=== PATIENT | female | born 1970 | race Caucasian/White ===

== ENCOUNTER → 2017-05-15 | Outpatient (CLI) | payer OTHER | LOC: CIMAGING 11:26 | PROVIDERS: ATTEND Urology | DX: N20.0 Calculus of kidney (principal); K59.00 Constipation, unspecified; Z96.0 Presence of urogenital implants | CPT/HCPCS: 74000-PO ==

== ENCOUNTER → 2017-05-29 | Outpatient (CLI) | payer OTHER | LOC: CIMAGING 10:28 | PROVIDERS: ATTEND Urology | DX: N20.0 Calculus of kidney (principal); Z96.0 Presence of urogenital implants | CPT/HCPCS: 74018-PO ==

== ENCOUNTER 2017-06-13 12:49 | Emergency (ER) | payer OTHER ==
[2017-06-13] MEDS ORDERED: ONDANSETRON 4 MG/2 ML VIAL ONE (13:17)
[2017-06-13] MEDS ORDERED: PROMETHAZINE HCL 25 MG/ML INJ ONE (13:18)
[2017-06-13] MEDS ORDERED: ONDANSETRON 4 MG/2 ML VIAL IVP ONE (13:20)
[2017-06-13] MEDS ORDERED: HYDROmorphONE/DILAUDID 1 MG/ML INJ ONE (13:30)
[2017-06-13] MEDS ORDERED: HYDROmorphONE/DILAUDID 1 MG/ML INJ IVP ONE (13:31)
[2017-06-13] MEDS ORDERED: PROMETHAZINE HCL 25 MG/ML INJ IVP ONE (13:32)
[2017-06-13] MEDS ORDERED: NS 1,000 ML IV ONE (14:31)
[2017-06-13 14:38] LABS: PLATELET COUNT 255 10^3/uL (150-400)
[2017-06-13] MEDS ORDERED: KETOROLAC 30 MG/1 ML SDV IVP ONE (15:03)
--- NOTE | 2017-06-13 15:08 | EDPHY ---
H & P Time Seen by Provider: 06/13/17 14:20 HPI/ROS: HPI Postoperative pain. 47-year-old female by private vehicle with friend. This patient reports that in mid April she was diagnosed with pyelonephritis. She had to have a ureteral stent placed on the left side to promote drainage. She reports that she is no longer on antibiotics. She also has a history of a large, 12 mm, right-sided kidney stone. This morning she had the left ureteral stent removed. She had lithotripsy to break up the right kidney stone and she had a ureteral stent placed on the right side. She presents to the emergency department complaining of pain which she describes as right flank pain as well as vague lower abdominal pain and nausea. She reports that she was given fentanyl at the surgery center for pain medication after the procedure and received oral narcotic pain medication prior to going home. She has not been running a fever. ROS: Constitutional: No fever, no chills. No weakness. Eyes: No discharge. No changes in vision. ENT: No sore throat. No nasal congestion or rhinorrhea. Respiratory: No cough. No shortness of breath. Cardiac: No chest pain, no palpitations. Gastrointestinal: As above, no vomiting, no diarrhea. Genitourinary: No hematuria. No dysuria or increased frequency with urination. Musculoskeletal: As above. No neck pain. No myalgias or arthralgias. Skin: No rashes. Neurological: No headache. No focal weakness or altered sensation. Past medical history: As above. Endometriosis with 3 laparotomies, appendectomy, PTSD. Social history: Here with a friend. Nonsmoker. No alcohol. Physical Exam: General Appearance: Alert, she appears uncomfortable. This patient is responding to questions appropriately and in full sentences. This patient appears well-hydrated and well-nourished. Eyes: Pupils equal and round no pallor or injection. No lid edema, erythema or injection. Respiratory: There are no retractions, lungs are clear to auscultation with good air movement bilaterally. Cardiovascular: Regular rate and rhythm. No murmur. Gastrointestinal: Abdomen is soft and nontender, no masses, bowel sounds normal. No focal tenderness at McBurney's point. No Samson sign. Neurological: Motor sensory function is grossly intact. Cranial nerves are normal. Gait is normal. Skin: Warm and dry, no rashes. Musculoskeletal: Right-sided CVA tenderness on palpation which is mild. No left-sided CVA tenderness. Extremities are symmetrical. All joints range without pain or impingement. Psychiatric: No agitation. No depression. Database: EKG: Imaging: Procedures: Emergency department course: IV was placed. She was started on IV normal saline with 1 L to be given over the next hour. She was initially given 0.5 mg of IV hydromorphone and 12.5 mg of IV Phenergan. 3:00 p.m., patient re-evaluated. Resting comfortably at this time. We are awaiting a urine sample from her. I discussed the results of her CBC and basic metabolic panel. He has no contraindications to NSAIDs. She reports that her pain is starting to come back. She will be given 30 mg of IV Toradol. 4:40 p.m., patient re-evaluated. Resting comfortably at this time. Results of all of her diagnostic testing discussed. Some blood in inflammatory changes seen on urinalysis. She is afebrile. I do not believe she requires antibiotics at this time given her history. She was not placed on antibiotics by her urologist post procedure. She feels comfortable going home and is requesting discharge. She will follow up with her urologist in [place] on Friday for re-evaluation. She is asking for some stronger medication for pain should her pain return over the weekend. I will prescribe her a limited number of hydromorphone tablets. Return to emergency department precautions were thoroughly reviewed with her. All of her questions were answered. She was discharged in good condition. Differential Diagnosis: The differential diagnosis on this patient includes but is not limited to postprocedural pain. Infection, uncontrolled bleeding unlikely. This represents a partial list of diagnoses considered. These considerations are based on history, physical exam, past history, reassessment and diagnostic testing. Smoking Status: Former smoker Constitutional: Initial Vital Signs Temperature (C) 36.9 C 06/13/17 12:57 Heart Rate 66 06/13/17 12:57 Respiratory Rate 18 06/13/17 12:57 Blood Pressure 93/51 L 06/13/17 12:57 O2 Sat (%) 98 06/13/17 12:57 O2 Delivery Mode Room Air Allergies/Adverse Reactions: morphine Allergy (Mild, Verified 06/13/17 12:56) Vomiting oxycodone [Oxycodone] Allergy (Verified 06/13/17 12:56) Home Medications: Medication Instructions Recorded ALPRAZolam [Xanax 0.5 MG (*)] 0.5 mg PO HS 07/10/15 Gabapentin [Neurontin 100 MG (*)] 400 mg PO HS 07/10/15 buPROPion XL [Wellbutrin 150mg XL] 150 mg PO DAILY 07/10/15 HYDROmorphone HCL [Dilaudid 2 mg 2 mg PO Q4-6PRN PRN #7 tab 06/13/17 (*)] Kimberly 5/325 (*) 06/13/17 Zofran 06/13/17 Medical Decision Making - Data Points Laboratory Results: Laboratory Results 06/13/17 13:10 06/13/17 13:10 06/13/17 06/13/17 06/13/17 15:05 13:10 13:10 WBC RBC Hgb Hct MCV MCH MCHC RDW Plt Count MPV Neut % (Auto) Lymph % (Auto) Hendry % (Auto) Eos % (Auto) Baso % (Auto) Nucleat RBC Rel Count Absolute Neuts (auto) Absolute Lymphs (auto) Absolute Monos (auto) Absolute Eos (auto) Absolute Basos (auto) Absolute Nucleated RBC Immature Gran % Immature Gran # Sodium 141 mEq/L mEq/L (135-145) Potassium 3.5 mEq/L mEq/L (3.5-5.2) Chloride 101 mEq/L mEq/L (97-110) Carbon Dioxide 27 mEq/l mEq/l (22-31) Anion Gap 13 mEq/L mEq/L (8-16) BUN 10 mg/dL mg/dL (7-23) Creatinine 0.7 mg/dL mg/dL (0.6-1.0) Estimated GFR > 60 Glucose 138 mg/dL H mg/dL (70-100) Calcium 9.5 mg/dL mg/dL (8.5-10.4) Beta HCG, Qual NEGATIVE Urine Color AMRITA Urine Appearance MODERATELY TURBID Urine pH 6.0 (5.0-7.5) Ur Specific [place] 1.020 (1.002-1.030) Urine Protein 2+ H (NEGATIVE) Urine Ketones NEGATIVE (NEGATIVE) Urine Blood 3+ H (NEGATIVE) Urine Nitrate NEGATIVE (NEGATIVE) Urine Bilirubin NEGATIVE (NEGATIVE) Urine Urobilinogen NEGATIVE EU EU (0.2-1.0) Ur Leukocyte Esterase 2+ H (NEGATIVE) Urine RBC 50-182 /hpf H /hpf (0-3) Urine WBC 50-182 /hpf H /hpf (0-3) Ur Epithelial Cells TRACE /lpf /lpf (NONE-1+) Urine Bacteria 1+ /hpf H /hpf (NONE SEEN) Urine Glucose 2+ H (NEGATIVE) 06/13/17 13:10 WBC 8.56 10^3/uL 10^3/uL (3.80-9.50) RBC 3.71 10^6/uL L 10^6/uL (4.18-5.33) Hgb 13.0 g/dL g/dL (12.6-16.3) Hct 37.8 % L % (38.0-47.0) MCV 101.9 fL H fL (81.5-99.8) MCH 35.0 pg H pg (27.9-34.1) MCHC 34.4 g/dL g/dL (32.4-36.7) RDW 11.6 % % (11.5-15.2) Plt Count 255 10^3/uL 10^3/uL (150-400) MPV 10.2 fL fL (8.7-11.7) Neut % (Auto) 93.9 % H % (39.3-74.2) Lymph % (Auto) 4.4 % L % (15.0-45.0) Hendry % (Auto) 1.1 % L % (4.5-13.0) Eos % (Auto) 0.0 % L % (0.6-7.6) Baso % (Auto) 0.2 % L % (0.3-1.7) Nucleat RBC Rel Count 0.0 % % (0.0-0.2) Absolute Neuts (auto) 8.04 10^3/uL H 10^3/uL (1.70-6.50) Absolute Lymphs (auto) 0.38 10^3/uL L 10^3/uL (1.00-3.00) Absolute Monos (auto) 0.09 10^3/uL L 10^3/uL (0.30-0.80) Absolute Eos (auto) 0.00 10^3/uL L 10^3/uL (0.03-0.40) Absolute Basos (auto) 0.02 10^3/uL 10^3/uL (0.02-0.10) Absolute Nucleated RBC 0.00 10^3/uL 10^3/uL (0-0.01) Immature Gran % 0.4 % % (0.0-1.1) Immature Gran # 0.03 10^3/uL 10^3/uL (0.00-0.10) Sodium Potassium Chloride Carbon Dioxide Anion Gap BUN Creatinine Estimated GFR Glucose Calcium Beta HCG, Qual Urine Color Urine Appearance Urine pH Ur Specific [place] Urine Protein Urine Ketones Urine Blood Urine Nitrate Urine Bilirubin Urine Urobilinogen Ur Leukocyte Esterase Urine RBC Urine WBC Ur Epithelial Cells Urine Bacteria Urine Glucose Medications Given: Discontinued Medications Hydromorphone HCl (Dilaudid) 0.5 mg IVP EDNOW ONE Stop: 06/13/17 13:32 Last Admin: 06/13/17 13:35 Dose: 0.5 mg Sodium Chloride (Ns) 1,000 mls @ 0 mls/hr IV EDNOW ONE; Wide Open PRN Reason: Protocol Stop: 06/13/17 14:32 Last Admin: 06/13/17 14:35 Dose: 1,000 mls Ketorolac Tromethamine (Toradol) 30 mg IVP EDNOW ONE Stop: 06/13/17 15:04 Last Admin: 06/13/17 15:10 Dose: 30 mg Ondansetron HCl (Zofran) 4 mg IVP EDNOW ONE Stop: 06/13/17 13:21 Last Admin: 06/13/17 13:24 Dose: Not Given Promethazine HCl (Phenergan) 12.5 mg IVP ONCE ONE Stop: 06/13/17 13:33 Last Admin: 06/13/17 13:33 Dose: 12.5 mg Departure - Departure Disposition: Home, Routine, Self-Care Clinical Impression: Postoperative pain Condition: Good Instructions: Pain Management After Surgery (DC) Additional Instructions: Read and follow provided instructions. Follow-up with your urologist on Friday for re-evaluation as discussed with Take medication pain medication as prescribed. Do not take Kimberly and hydromorphone pain medications at the same time. You can resume taking your non narcotic pain medication tomorrow morning as prescribed. Do not drive while taking narcotic pain medication. Return to the emergency department for worsening pain, fever, vomiting or other serious concerns. Referrals: ADIS DURAN [Primary Care Provider] - As per Instructions Prescriptions: HYDROmorphone HCL [Dilaudid 2 mg (*)] 2 mg PO Q4-6PRN PRN #7 tab PRN Reason: For Moderate To Severe Pain
[2017-06-13 15:35] VITALS: RESP 16
[2017-06-13 17:06] VITALS: BP 112/76; PULSE 81; TEMP 98.6; O2SAT 98
== END 2017-06-13 17:06 | disposition home or self-care (01) ==
DX: G89.18 Other acute postprocedural pain (principal); E86.9 Volume depletion, unspecified; Z87.891 Personal history of nicotine dependence
CPT/HCPCS: 96374; J1170; J1885; J2405; J2550

== ENCOUNTER → 2017-06-26 | Outpatient (CLI) | payer OTHER | LOC: CIMAGING 13:15 | PROVIDERS: ATTEND Urology | DX: N20.0 Calculus of kidney (principal); Z96.0 Presence of urogenital implants | CPT/HCPCS: 74018-PO ==

== ENCOUNTER → 2017-07-18 | Outpatient (CLI) | payer OTHER | LOC: CIMAGING 16:48 | PROVIDERS: ATTEND Urology | DX: N20.0 Calculus of kidney (principal) | CPT/HCPCS: 74018-PO ==

== ENCOUNTER → 2017-09-05 | Outpatient (CLI) | payer OTHER | LOC: CIMAGING 09:49 | PROVIDERS: ATTEND Family Medicine | DX: Z12.31 Encounter for screening mammogram for malignant neoplasm of breast (principal) ==

== ENCOUNTER → 2017-09-18 | Outpatient (CLI) | payer OTHER | LOC: CIMAGING 12:54 | PROVIDERS: ATTEND Family Medicine | DX: N63.20 Unspecified lump in the left breast, unspecified quadrant (principal) ==

== ENCOUNTER → 2018-09-08 | Outpatient (CLI) | payer OTHER | LOC: CIMAGING 09:00 | PROVIDERS: ATTEND Family Medicine | DX: Z12.31 Encounter for screening mammogram for malignant neoplasm of breast (principal) ==